=== PATIENT | male | born 1965 | race Caucasian/White ===

== ENCOUNTER 2018-10-26 12:07 | Day surgery (SDC) | payer BC ==
[~2018-10-26] VITALS: Ht 182.9 cm; Wt 104.3 kg
[2018-10-26 08:50] VITALS: BP 149/77; PULSE 112
[2018-10-26 12:57] VITALS: BP 144/90; PULSE 114; TEMP 97.8
[2018-10-26] MEDS ORDERED: TRIAMC 0.1 454 TOP (13:04)
--- NOTE | 2018-10-26 13:05 | NUR ---
TO RM 8 AT 1228-CALL LIGHT IN REACH FRIEND JOSE MANUEL AT BEDSIDE.
[2018-10-26 18:10] VITALS: BP 137/65; PULSE 104; TEMP 99.1
--- NOTE | 2018-10-26 18:10 | NUR ---
TO RM 8 PER CART FROM PACU. ALERT ORIENTED X3, TALKING TO FRIEND JOSE MANUEL AND STAFF. RECEIVED CRACKERS AND DRINKING WATER DENIES PAIN OR DISCOMFORT AT THIS TIME. DENIES NAUSEA OR VOMITING.
[2018-10-26] MEDS ORDERED: NORCO 325 MG-51 TAB PO (18:19)
[2018-10-26 18:25] VITALS: BP 146/67; PULSE 107
--- NOTE | 2018-10-26 18:25 | NUR ---
RECEIVED KATH CRACKERS AND APPLE SAUCE
--- NOTE | 2018-10-26 18:40 | NUR ---
3 BANDAIDES AND MID ABDOMINAL DRESSING CLEAN DRY INTACT. UP AMBULATED TO BATHROOM, VOIDED AND TOLERATED WELL.
--- NOTE | 2018-10-26 18:50 | NUR ---
RECEIVED DISCHARGE INSTRUCTIONS AND VERBALIZED UNDERSTANDING.
--- NOTE | 2018-10-26 19:00 | NUR ---
DISCHARGED PER WC BY NURSING STAFF TO PRIVATE CAR IN CARE OF FRIEND - JOSE MANUEL.
== END 2018-10-26 19:15 | disposition home or self-care (01) ==
LOC: SDCO 12:07
DX: K43.2 Incisional hernia without obstruction or gangrene (principal); K74.60 Unspecified cirrhosis of liver; R18.8 Other ascites; I10 Essential (primary) hypertension; Z98.84 Bariatric surgery status; F17.220 Nicotine dependence, chewing tobacco, uncomplicated
CPT/HCPCS: C1781; J0690; J1100; J1885; J2405; J2704; J2710; J3010; J7120